=== PATIENT | female | born 1945 | race Caucasian/White ===

== ENCOUNTER 2021-02-05 07:50 | Outpatient (CLI) | payer MEDICARE, SELFPAY ==
[2021-02-05] VITALS (7 sets, daily range): BP systolic 122–128; BP diastolic 72–84; PULSE 74–79; RESP 18–20; TEMP 36.9–37; O2SAT 95–96
== END 2021-02-05 10:00 | disposition home or self-care (01) ==
LOC: INF 07:56
PROVIDERS: PCP Family Medicine; Visit Provider Family Medicine
DX: U07.1 COVID-19 (principal); Z23 Encounter for immunization
CPT/HCPCS: 96365

== ENCOUNTER → 2021-02-21 13:36 | Outpatient (CLI) | payer MEDICARE, SELFPAY | PROVIDERS: Visit Provider Nurse Practitioner | DX: Z20.822 Contact with and (suspected) exposure to COVID-19 (principal) | CPT/HCPCS: C9803; U0003; U0005 ==

== ENCOUNTER 2023-02-18 09:50 | Emergency (ER) | payer MEDICARE, SELFPAY ==
[2023-02-18 10:15] VITALS: BP 130/71; PULSE 78; RESP 18; TEMP 36.9; O2SAT 96
--- NOTE | 2023-02-18 10:23 | EXP.UTC ---
Discharge Plan Disposition Patient Disposition: Home, Self-Care Condition: Good Prescriptions Prescriptions: New azithromycin [Zithromax] 250 mg tablet 250 mg PO UD DOSE PK Qty: 6 0RF Rx Instructions: Take two (2) tablets today, then one (1) tablet days #2 thru #5 benzonatate [benzonatate] 100 mg capsule 100 mg PO TIDP PRN (Reason: Cough) Qty: 30 0RF guaifenesin [Mucinex] 600 mg tablet extended release 12hr 600 - 1,200 mg PO BIDP PRN (Reason: Congestion) Qty: 30 0RF methylprednisolone 4 mg Tablets,Dose Pack 4 mg PO DIRECTED 6 Days Qty: 21 0RF Rx Instructions: Take 1 pack as directed for 6 days No Action thyroid (pork) [[place] Thyroid] 30 mg tablet See Rx Instructions .ROUTE .COMPLEX Patient Comments: TAKE 2 TABLETS BY MOUTH ON SUNDAY, SUNDAY AND SUNDAY AND 1 TABLET ALL OTHER DAYS OF THE WEEK Rx Instructions: TAKE 2 TABLETS BY MOUTH ON SUNDAY, SUNDAY AND SUNDAY AND 1 TABLET ALL OTHER DAYS OF THE WEEK Referrals Follow up/Referrals: Clair Yoder [Primary Care Provider] - See instructions Activity Restrictions/Add. Instructions Additional Instructions/Restrictions: Drink plenty of fluids. Take tylenol or ibuprofen for pain or fever. Take the medications as directed. Follow up with your regular doctor. GO TO THE ER FOR ANY WORSENING SYMPTOMS Clinical Impressions Clinical Impression: Sinusitis, Bronchitis Instructions Patient Instructions: DI for Sinusitis Discharge ED Provider: Gregory Mondragon [facility] [place] General Stated complaint: cough chest congestion Time Seen by Provider: 02/18/23 10:23 History of Present Illness Provider Complaint: She states that for the past 4 days she has had sinus congestion and a cough. She denies any fever/chills/body aches. Related Data Home Medications Medication Instructions Recorded Confirmed thyroid (pork) 30 mg tablet See Rx Instructions .Route .COMPLEX 02/18/23 02/18/23 ([place] Thyroid) Previous Rx's Medication Instructions Recorded azithromycin 250 mg tablet 250 mg PO UD DOSE PK #6 tabs 02/18/23 (Zithromax) benzonatate 100 mg capsule 100 mg PO TIDP PRN Cough #30 caps 02/18/23 guaifenesin 600 mg tablet, 600 - 1,200 mg PO BIDP PRN 02/18/23 extended release 12 hr (Mucinex) Congestion #30 tabs methylprednisolone 4 mg tablets in 4 mg PO DIRECTED 6 days #21 tabs 02/18/23 a dose pack Allergies Allergy/AdvReac Type Severity Reaction Status Date / Time No Known Allergies Allergy Verified 02/18/23 10:25 [facility] Disclaimer: The information contained in this section may have been updated after the patient was seen, as this information can be updated by other users. 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 (Updated 02/18/23 @ 10:32 by Gregory Mondragon APRN) Thyroid disease Social History Smoking Status: Never smoker alcohol intake: never current occupational status: employed Travel in the last 8 weeks: None ROS Obtained: Yes All systems reviewed & no additional complaints except as documented Constitutional Constitutional: Reports poor appetite Eyes Eyes: Reports system reviewed and no additional complaints, except as documented ENT Ears, Nose, Mouth, and Throat: Reports as per HPI Cardiovascular Cardiovascular: Reports system reviewed and no additional complaints, except as documented and Denies chest pain Respiratory Respiratory: Denies shortness of breath, Reports chest congestion, Reports cough, Denies stridor and Denies wheezing Gastrointestinal Gastrointestingal: Reports system reviewed and no additional complaints, except as documented; Denies abdominal pain, diarrhea or vomiting Musculoskeletal Musculoskeletal: Reports system reviewed and no additional complaints, except as documented and Denies arthralgias Integumentary/Breasts Skin/Breast: Reports system reviewed and no additional complaints, except as documented and Denies rash Neurologic Neurologic: Denies paresthesias Allergic/Immunologic Allergic/Immunologic: Denies wheezing Physical Exam General General appearance: alert and in no apparent distress Eye Eye exam: Present normal appearance, PERRL and EOMI ENT ENT exam: Present mucous membranes moist and normal external ear exam Expanded ENT Exam External ear exam: Present normal external inspection TM/Canal exam: Bilateral TM: erythema and bulging Nose exam: Absent sinus tenderness Nasal speculum exam: Bilateral: normal Mouth exam: Present normal external inspection; Absent drooling Teeth exam: Present normal inspection Throat exam: Present tonsillar erythema and tonsillomegaly Neck Neck exam: Present normal inspection, full ROM and trachea midline; Absent tenderness, lymphadenopathy or thyromegaly Chest Chest inspection: Present normal inspection and symmetric chest wall rise; Absent tenderness or rash Respiratory Respiratory exam: Present normal lung sounds bilaterally; Absent respiratory distress, wheezes, stridor or accessory muscle use Cardiovascular Cardiovascular exam: Present regular rate, normal rhythm and normal heart sounds Abdominal Exam Abdominal exam: Present soft; Absent distention, tenderness, guarding, rebound or rigidity Extremities Exam Extremities exam: Present normal inspection, full ROM and normal capillary refill; Absent tenderness or calf tenderness Back Exam Back exam: Present normal inspection and full ROM; Absent tenderness Neurological Exam Neurological exam: Present alert and oriented X3 Psychiatric Psychiatric exam: Present normal affect and normal mood Skin Skin exam: Present warm, dry, intact and normal color Lymphatic Lymphatic Findings: no adenopathy Medical Decision Making Medical Records Medical records reviewed: No I reviewed the patient's medical records. Jaime Inquiry Pt receiving controlled substance: No
[2023-02-18 10:46] VITALS: BP 130/71; PULSE 78; RESP 18; TEMP 36.9; O2SAT 96
== END 2023-02-18 10:46 | disposition home or self-care (01) ==
PROVIDERS: Emergency Provider Nurse Practitioner Family; PCP Family Medicine
DX: J20.9 Acute bronchitis, unspecified (principal); J01.90 Acute sinusitis, unspecified; R05.9 Cough, unspecified; R09.89 Other specified symptoms and signs involving the circulatory and respiratory systems; R09.81 Nasal congestion
CPT/HCPCS: 99204; 99212; G0463

== ENCOUNTER 2023-10-06 10:57 | Emergency (ER) | payer MEDICARE, SELFPAY ==
[2023-10-06 11:35] VITALS: BP 124/61; PULSE 58; RESP 18; TEMP 36.6; O2SAT 98; BMI 23.0
--- NOTE | 2023-10-06 11:44 | XR_ITS ---
PROCEDURE INFORMATION: Exam: XR Right Foot Exam date and time: 10/06/2023 12:02 PM Age: 77 years old Clinical indication: Pain; Foot; Right; Additional info: Pain and swelling TECHNIQUE: Imaging protocol: Radiologic exam of the right foot. Views: 3 or more views. COMPARISON: No relevant prior studies available. FINDINGS: Bones/joints: Fracture at the lateral base proximal phalanx 1st digit, age uncertain. Articular extension evident. No dislocation. Soft tissues: Normal. IMPRESSION: Fracture at the lateral base proximal phalanx 1st digit, age uncertain. Recommend correlation with patient pain.
--- NOTE | 2023-10-06 11:44 | XR_ITS ---
PROCEDURE INFORMATION: Exam: XR Right Ankle Exam date and time: 10/06/2023 12:04 PM Age: 77 years old Clinical indication: Pain; Ankle; Right; Additional info: Pain and swelling TECHNIQUE: Imaging protocol: Radiologic exam of the right ankle. Views: 3 or more views. COMPARISON: CR XR FOOT RT MIN 3V 10/06/2023 12:02 PM FINDINGS: Bones/joints: No acute fracture or dislocation. Soft tissues: Lateral soft tissue swelling. IMPRESSION: Lateral soft tissue swelling.
--- NOTE | 2023-10-06 11:47 | ED_ITS ---
Discharge Plan Disposition Patient Disposition: Home, Self-Care Condition: Good Prescriptions Prescriptions: New prednisone 20 mg tablet 20 mg PO BID Qty: 10 0RF No Action thyroid (pork) [[place] Thyroid] 30 mg tablet See Rx Instructions .ROUTE .COMPLEX Patient Comments: TAKE 2 TABLETS BY MOUTH ON SUNDAY, SUNDAY AND SUNDAY AND 1 TABLET ALL OTHER DAYS OF THE WEEK Rx Instructions: TAKE 2 TABLETS BY MOUTH ON SUNDAY, SUNDAY AND SUNDAY AND 1 TABLET ALL OTHER DAYS OF THE WEEK Referrals Follow up/Referrals: Clair Yoder [Primary Care Provider] - See instructions Activity Restrictions/Add. Instructions Additional Instructions/Restrictions: Weight bearing as tolerated rest Ice with cold pack for 20 minutes remove may repeat for comfort every hour Elevate with foot above your heart as much as possible to help reduce swelling and therefore pain Ibuprofen every 6 hours as needed for pain or inflammation. If needs something more you can take Tylenol every 4 hours as needed as long as her primary care has told he was okayed for you to take both. If improving any do not need to follow-up you can bring begin exercising 2-3 weeks after injury. Follow-up immediately if new or worsening symptoms or no noticeable improvement over the next 3-5 days. call ortho if no improvement Clinical Impressions Clinical Impression: Acute foot pain Instructions Patient Instructions: DI for Metatarsalgia Print Language Print Language: Malawian Discharge ED Provider: Kesha ([facility])Yesi [facility] [place] H[place] General Stated complaint: right foot pain Mode of Arrival: Ambulatory Source of Information: Patient Limitations: No Limitations Time Seen by Provider: 10/06/23 11:47 Description of Symptoms (Recalled from Triage Doc. by RN): PATIENT C/O SWELLING AND PAIN TO RIGHT FOOT AND ANKLE X 2 DAYS, NO KNOWN INJURY HEENT Symptoms (Recalled from RN notes): No Resp Symptoms (Recalled from RN notes): No Skin Symptoms (Recalled from RN notes): No MS Symptoms (Recalled from RN notes): Yes Functional Status (Recalled from RN notes): WNL History of Present Illness Provider Complaint: 77 yr old female presents for c/o right foot pain x 2 days no injury Related Data Home Medications ?Medication ?Instructions ?Recorded ?Confirmed thyroid (pork) 30 mg tablet See Rx Instructions .Route .COMPLEX 02/18/23 10/06/23 ([place] Thyroid) Previous Rx's ?Medication ?Instructions ?Recorded prednisone 20 mg tablet 20 mg PO BID #10 tabs 10/06/23 Allergies Allergy/AdvReac Type Severity Reaction Status Date / Time No Known Allergies Allergy Verified 02/18/23 10:25 Worker's Comp Is this a Worker's Comp case?: No PFSH [facility] Disclaimer: The information contained in this section may have been updated after the patient was seen, as this information can be updated by other users. 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: Never smoker alcohol intake: never current occupational status: employed Travel in the last 8 weeks: None ROS Obtained: Yes All systems reviewed & no additional complaints except as documented Constitutional Constitutional: Reports system reviewed and no additional complaints, except as documented Eyes Eyes: Reports system reviewed and no additional complaints, except as documented ENT Ears, Nose, Mouth, and Throat: Reports system reviewed and no additional complaints, except as documented Cardiovascular Cardiovascular: Reports system reviewed and no additional complaints, except as documented Respiratory Respiratory: Reports system reviewed and no additional complaints, except as documented Musculoskeletal Musculoskeletal: Reports system reviewed and no additional complaints, except as documented, Reports as per HPI, Reports arthralgias, Reports limited range of motion and Reports other Integumentary/Breasts Skin/Breast: Reports system reviewed and no additional complaints, except as documented Neurologic Neurologic: Reports system reviewed and no additional complaints, except as documented Endocrine Endocrine: Reports system reviewed and no additional complaints, except as documented Hematologic/Lymphatic Henatologic/Lymphatic: Reports system reviewed and no additional complaints, except as documented Allergic/Immunologic Allergic/Immunologic: Reports system reviewed and no additional complaints, except as documented Physical Exam General General appearance: alert and in no apparent distress Eye Eye exam: Present normal appearance and PERRL ENT ENT exam: Present normal exam Respiratory Respiratory exam: Present normal lung sounds bilaterally Cardiovascular Cardiovascular exam: Present regular rate and normal rhythm Expanded Lower Extremity Exam Right: Top foot image: 2 1. [employer] Neurological Exam Neurological exam: Present alert and oriented X3 Skin Skin exam: Present warm and intact Lymphatic Lymphatic Findings: no adenopathy Medical Decision Making Medical Records Medical records reviewed: Yes I reviewed the patient's medical records. Jaime Inquiry Pt receiving controlled substance: No Jaime was queried for this patient: No Vital Signs: 10/06/23 11:35 Temperature 97.9 F Temperature Source Oral Pulse Rate [Right Brachial] 58 L Respiratory Rate 18 Blood Pressure [Right Arm] 124/61 Blood Pressure Mean [Right Arm] 82 Blood Pressure Source [Right Arm] Automatic Cuff Blood Pressure Position [Right Arm] Sitting 02 Sat by Pulse Oximetry 98 Oxygen Delivery Method Room Air Orders (Tests/Meds): ORDERS Category Date Time Status Ankle XR -Right minimum 3 Views [XR ankle RT min 3V] Exams 10/06/23 11:44 Ordered Stat XR foot RT min 3V Stat Exams 10/06/23 11:44 Ordered Radiology Data #1: Image(s): Foot/Toes Image Reviewed: Yes I reviewed the patient's radiology image Preliminary Findings: Normal/NAD
[2023-10-06 13:02] VITALS: BP 124/61; PULSE 58; RESP 18; TEMP 36.6; O2SAT 98
== END 2023-10-06 13:06 | disposition home or self-care (01) ==
PROVIDERS: Emergency Provider Nurse Practitioner Family; PCP Family Medicine
DX: M79.671 Pain in right foot (principal)
CPT/HCPCS: 73610; 73630; 99212; 99214; G0463

== ENCOUNTER 2024-10-10 09:59 | Outpatient (CLI) | payer MEDICARE, SELFPAY ==
--- OUTSIDE RECORDS SUMMARY | 2024-05-24 17:30 | XMS_ITS ---
Author Organization [facility] Address [address] [facility] [address] [facility] [address] [place] [address] Care Team Providers Care Cmv Driver Name Role Phone Darrin Soto Primary Care Provider Darrin Soto Unavailable Unavailable Migration, Provider Unavailable [facility] Encounter Medications Medication SIG (Take, Route, Fr equency, Duration) Notes Start Date End Date Status [place] Thyroid 30 MG 1 tab(s) orally 1 t ab on odd days and 2 tabs on even days Act meng Ciclopirox 0.77 % 1 doug applied topica lly 2 times a day; Duration: 30 days 03/17/2024 Active Encounters Encounter Location Date Provider Diagnosis [facility] [address] [facility] [address] [place] [id number] 05/24/2024 Provider Migration Onychomycosis B35.1 Assessments Encounter Date Diagnosis (ICD Code) Assessment Notes Treatment Notes Treatment Clinical Notes Section Notes 05/24/2024 Onychomycosis (ICD-10 - B35.1) Plan Of Treatment Medication Medication Name Sig Start Date Stop Date Notes Ciclopirox 0.77 % 1 doug applied topica lly 2 times a day; Duration: 30 days 03/17/2024 Progress Notes * Maude HEOB:1945 ([age] yo F)Acc No.[id number]:05/24/2024 Patient: Patricia Liz CONN Provider: Graciela hernández Migration :1945 A ge:78 Y S ex:Female Date:05/24/2024 Address:[address] [place] [address] [address] [facility] [id number] Pcp:Darrin Soto Subjective: * Chief Complaints: * 1 . [facility] To [facility] Conversion Encounter. * 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: * Medications: T aking [place] Thyroid 30 MG Tablet 1 tab(s) orally 1 tab on odd days and 2 tabs on even days Objective: * Vitals: Assessment: * Assessment: 1. O nychomycosis - B35.1 Plan: * Treatment: * * Electronic signature of Prov aliza Migration on 10/10/2024 at 10:02 AM EDT Sign off status: Pending * Provider: Graciela hernández Migration Date: 0 05/24/2024 Generated for Zunilda riddle/Deana/Ivainaitting on: 0 10/10/2024 10:02 AM EDT
--- OUTSIDE RECORDS SUMMARY | 2024-10-06 07:15 | XMS_ITS ---
Author Organization [facility] Address [address] [place] [address] Care Team Providers Care Document Imaging Manager Name Role Phone Darrin Soto Primary Care Provider Darrin Soto Unavailable Unavailable Allergies No Known Allergies Results Component Value Reference Range Notes THYROID PANEL WITH TSH (7444 ) Reviewed date:10/09/2024 10:47:30 AM Interpretation: Performing Lab:[facility] [id number]em[address]FastDue, [id number] Andrea Tucker Notes/Report: NON-FASTING; NON-FASTING; NON-FASTING FASTING:YES FASTING: YES T3 UPTAKE 24 22-35 % T4 (THYROXINE), TOTAL 6.0 5.1-11.9 mcg/dL FREE T4 INDEX (T7) 1.4 1.4-3.8 TSH 2.16 0.40-4.50 mIU/L LIPID PANEL, STANDARD (7600) Reviewed date:10/09/2024 10:47:46 AM Interpretation: Performing Lab:[facility] [id number] [address], [id number] nAdrea Tucker Notes/Report: NON-FASTING; NON-FASTING; NON-FASTING FASTING:YES FASTING: YES CHOLESTEROL, TOTAL 215 <200 mg/dL HDL CHOLESTEROL 42 > OR = 50 mg/dL TRIGLYCERIDES 211 <150 mg/dL If a non-fasting specimen was collected, consider repeat triglyceride testing on a fasting specimen if clinically indicated. Ramin et al. J. of Clin. Lipidol. 2015;9:129-169. LDL-CHOLESTEROL 138 Reference range: <100 Desirable range <100 mg/dL for primary prevention; <70 mg/dL for patients with CHD or diabetic patients with > or = 2 CHD risk factors. LDL-C is now calculated using the Vitaly calculation, which is a validated novel method providing better accuracy than the Friedewald equation in the estimation of LDL-C. Tulio SS et al. RADHA. 2013;310(19): 2001-0560 (http://education.[employer] [place]/faq/KJA799) CHOL/HDLC RATIO 5.1 <5.0 (calc) NON HDL CHOLESTEROL 173 <130 mg/dL (calc) For patients with diabetes plus 1 major ASCVD risk factor, treating to a non-HDL-C goal of <100 mg/dL (LDL-C of <70 mg/dL) is considered a therapeutic option. COMPREHENSIVE METABOLIC PANE Everette (44966) Reviewed date:10/09/2024 02:23:19 PM Interpretation: Performing Lab:[facility], [facility] [id number] [facility] Garsia, Jordan [id number] Andrea Tucker Notes/Report: NON-FASTING; NON-FASTING; NON-FASTING FASTING:YES FASTING: YES GLUCOSE 76 65-99 mg/dL Fasting reference interval UREA NITROGEN (BUN) 12 7-25 mg/dL CREATININE 0.81 0.60-1.00 mg/dL EGFR 75 > OR = 60 mL/min/1.73m2 BUN/CREATININE RATIO SEE NOTE: 6-22 (calc) Not Reported: BUN and Creatinine are within reference range. SODIUM 140 135-146 mmol/L POTASSIUM 3.9 3.5-5.3 mmol/L CHLORIDE 106 98-110 mmol/L CARBON DIOXIDE 27 20-32 mmol/L CALCIUM 9.3 8.6-10.4 mg/dL PROTEIN, TOTAL 6.6 6.1-8.1 g/dL ALBUMIN 4.2 3.6-5.1 g/dL GLOBULIN 2.4 1.9-3.7 g/dL (calc) ALBUMIN/GLOBULIN RATIO 1.8 1.0-2.5 (calc) BILIRUBIN, TOTAL 0.4 0.2-1.2 mg/dL ALKALINE PHOSPHATASE 75 37-153 U/L AST 19 10-35 U/L ALT 16 6-29 U/L REASON FOR VISIT Cholesterol follow up Medications Medication SIG (Take, Route, Fr equency, Duration) Notes Start Date End Date Status [place] Thyroid 30 MG 1 tab(s) orally 1 t ab on odd days and 2 tabs on even days Act meng Social History Tobacco Use: Social History Observation Description Date Details (start date - stop date) Never Smoker NA - NA Tobacco Control (Standard) Question Answer Notes Tobacco use: Nonsmoker Problems Problem Type SNOMED Code ICD Code Onset Dates Problem Status W/U Status Risk Notes Problem 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 Problem Restless legs (19053363) Restless leg (G25.81) Active confirmed Problem Gastroesophageal reflux disease (454132224) GERD without esophagitis (K21.9) Active confirmed Vital Signs Temperature 97.9 degrees Fahrenheit 10/07/19 25 Heart Rate 76 /min 10/06/2024 Blood pressure systolic 120 mm Hg 10/07/19 25 Blood pressure diastolic 74 mm Hg 025 Height 65.5 in 10/06/2024 Weight 138 lbs 10/06/2024 BMI 22.61 kg/m2 10/06/2024 Encounters Encounter Location Date Provider Diagnosis [facility] [address] [place] [address] 10/06/2024 Darrin Guerlinelisa Acquired hypothyroid ism E03.9 ; Mixed hyperlipidemia E78.2 ; Idiopathic neuropathy G60.9 ; Restless leg G25.81 ; GERD without esophagitis K21.9 ; Spider veins I78.1 ; Onychomycosis B35.1 and Dizziness R42 Assessments Encounter Date Diagnosis (ICD Code) Assessment Notes Treatment Notes Treatment Clinical Notes Section Notes 10/06/2024 Acquired hypothyroidism (ICD-10 - E03.9) maintaining current regimen of armour thyroid 30 mg thyroid panel labs drawn today. I will personally review labs 10/06/2024 Mixed hyperlipidemia (ICD-10 - E78.2) LDL labs were adequate on last lab draw, triglycerides elevated at last draw pt finished taking red yeast rice extract about 3 wks ago lipid panel drawn today i will review personally 10/06/2024 Idiopathic neuropathy (ICD-10 - G60.9) labs drawn today, i will personally review 10/06/2024 Restless leg (ICD-10 - G25.81) labs drawn today, i will personally review 10/06/2024 GERD without esophagitis (ICD-10 - K21.9) pt to continue taking OTC omeprazole and switch to sleeping on her left side for optimal digestion 10/06/2024 Spider veins (ICD-10 - I78.1) no need for treatment, mostly cosmetic concern recommend asa 81mg daily 10/06/2024 Onychomycosis (ICD-10 - B35.1) pt using otc ciclopirox nail lacquer and nail drill continue current regimine discussed using topical lacquer for up to a year for resolution of nail fungus 10/06/2024 Dizziness (ICD-10 - R42) I will refer pt for carotid doppler US Plan Of Treatment Treatment Notes Assessment Notes Acquired hypothyroidism maintaining current regimen of armour thyroid 30 mg thyroid panel labs drawn today. I will personally review labs Mixed hyperlipidemia LDL labs were adequate on last lab draw, triglycerides elevated at last draw pt finished taking red yeast rice extract about 3 wks ago lipid panel drawn today i will review personally Idiopathic neuropathy labs drawn today, i will personally review Restless leg labs drawn today, i will personally review GERD without esophagitis pt to continue taking OTC omeprazole and switch to sleeping on her left side for optimal digestion Spider veins no need for treatment, mostly cosmetic concern recommend asa 81mg daily Onychomycosis pt using otc ciclopirox nail lacquer and nail drill continue current regimine discussed using topical lacquer for up to a year for resolution of nail fungus Dizziness I will refer pt for carotid doppler US Pending Test Test Name Order Date MAGNESIUM (622) 10/06/2024 HEMOGLOBIN A1c (496) 10/06/2024 VITAMIN B12/FOLATE, SERUM PANEL (7065) 0 10/06/2024 FERRITIN (457) 10/06/2024 VITAMIN D,25-OH,TOTAL,IA (10834) 025 CAROTID DUPLEX 10/06/2024 Next Appt Details Follow Up: prn, Reason: Progress Notes * Maude HEOB:1945 ([age] yo F)Acc No.[id number]:10/06/2024 Progress Notes Patient: Liz SILVA Provider: Patricia Soto MD :1945 A ge:78 Y S ex:Female Date:10/06/2024 Address:[address] [place] [address] [place] [address] [id number] Subjective: * Chief Complaints: * 1 . Cholesterol follow up. * HPI: g en: Mrs. He presents today for a follow up. She is here for lipid labs. She is fasting. She finished taking red yeast rice extract a bout a month ago. She would like to discuss her liver with a previous diagnosis of fatty liver disease. would like to talk about her dizziness and check the blood flow to her head. Although she does not get dizzy anymore after taking B12 supplements. She saw a health informatics specialist in the past for toenail fungus who gave an otc paint on antifungal, She was using a drill file on her nails, but would like other options and recommendations. She has broken blood vessels and pain in her feet from lack of cushion. She experiences leg cramping at night mostly in the right leg which she takes magnesium citrate for relief. She has a slightly itchy rash and visible veins on her legs which concerns her for blood flow problems. She has been experiencing tinnitis for some time now without hearing loss or pain. She has been experiencing heart burn which is relieved by omeprazole. * 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: H yperthyroidism, Sojen disease. * Surgical History: t umor removal , colonoscopy 2020. * Hospitalization/Major Diagno stic Procedure: R ectal bleeding 2014. * Family History: F ather: , Alzheimer's dementia. M other: , diagnosed with Heart Disease.?Paternal Grand Father: . P aternal Grand Mother: . M aternal Grand Father: . M aternal Grand Mother: . P aternal uncle: . P aternal aunt: . M aternal uncle: . M aternal aunt: . S iblings: .?Children: alive. 1 brother(s) , 1 sister(s) . 2 daughter(s) - healthy. . * Social History: R ecreational drug use: no. Exercise: yes. Home smoke detector use: yes. Caffeine: yes, frequency: coffee, tea. Living Will: Yes. Alcohol: no. Sexually active: no. Travel outside [place]: no. Occupation: Retired. Tobacco Control (Standard) T obacco use: N onsmoker. * Medications: T paulino [place] Thyroid 30 MG Tablet 1 tab(s) orally 1 tab on odd days and 2 tabs on even days , Discontinued Meclizine HCl 25 MG Tablet 1 tab(s) orally 3 times a day prn vertigo , Discontinued Ondansetron 4 MG Tablet Disintegrating 1 tab(s) orally 3 times a day , Discontinued Ciclopirox 0.77 % Gel APPLY TOPICALLY TO AFFECTED AREA TWICE DAILY , Medication List reviewed and reconciled with the patient * Allergies: N .K.D.A. Objective: * Vitals: N urse: be, Pain: 0, Temp: 97.9, RR: 16, HR: 76, BP: 120/74, Ht: 65.5, Wt: 138, BMI:22.61. * Examination: G eneral Examination: General P leasant and Cooperative, NAD on RA,. Heart: R egular Rate and Rhythm, no murmur, rubs or gallops. Lungs: L CTAB, No wheezes, crackles or rhonchi, Good air movement,. Skin: m ildly erythematous rash on left pretibial region.? Assessment: * Assessment: 1. A cquired hypothyroidism - E03.9 (Primary) 2 . M ixed hyperlipidemia - E78.2 3 . I diopathic neuropathy - G60.9 4 . R estless leg - G25.81 5 . G ERD without esophagitis - K21.9 6 . S pider veins - I78.1 7 . O nychomycosis - B35.1 8 . D izziness - R42? Plan: * Treatment: Value Reference Range T 3 UPTAKE 24 22-35 - % * T 4 (THYROXINE), TOTAL 6.0 5.1-11.9 - mcg/dL * F REE T4 INDEX (T7) 1.4 1.4-3.8 - * T SH 2.16 0.40-4.50 - mIU/L * Anahy Shannon 10/08/2024 10:07:41 AM EDT > Left patient VM to call [facility] lab was reviewed by Mirta Rodriguez on 10/09/2024 at 10:47 AM EDT ?LAB: LIPID PANEL, STANDARD (7600)* Value Reference Range T RIGLYCERIDES 211 H <150 - mg/dL * C HOLESTEROL, TOTAL 215 H <200 - mg/dL * H DL CHOLESTEROL 42 L > OR = 50 - mg/dL * L DL-CHOLESTEROL 138 H - mg/dL (calc) * C HOL/HDLC RATIO 5.1 H <5.0 - (calc) * N ON HDL CHOLESTEROL 173 H <130 - mg/dL (calc) * Anahy Shannon 10/08/2024 10:07:41 AM EDT > Left patient VM to call [facility] lab was reviewed by Mirta Rodriguez on 10/09/2024 at 10:47 AM EDT ?LAB: COMPREHENSIVE METABOLIC PANEL (32364)* Value Reference Range G LUCOSE 76 65-99 - mg/dL * U BETINA NITROGEN (BUN) 12 7-25 - mg/dL * C REATININE 0.81 0.60-1.00 - mg/dL * B UN/CREATININE RATIO SEE NOTE: 6-22 - (calc) * S ODIUM 140 135-146 - mmol/L * P OTASSIUM 3.9 3.5-5.3 - mmol/L * C HLORIDE 106 98-110 - mmol/L * C ARBON DIOXIDE 27 20-32 - mmol/L * C ALCIUM 9.3 8.6-10.4 - mg/dL * P ROTEIN, TOTAL 6.6 6.1-8.1 - g/dL * A LBUMIN 4.2 3.6-5.1 - g/dL * G LOBULIN 2.4 1.9-3.7 - g/dL (calc ) * A LBUMIN/GLOBULIN RATIO 1.8 1.0-2.5 - (calc) * B ILIRUBIN, TOTAL 0.4 0.2-1.2 - mg/dL * A LKALINE PHOSPHATASE 75 37-153 - U/L * A ST 19 10-35 - U/L * A LT 16 6-29 - U/L * E GFR 75 > OR = 60 - mL/min/1 .73m2 * Anahy Shannon 10/08/2024 10:07:41 AM EDT > Left patient VM to call [facility] lab was reviewed by Anahy Shannon on 10/09/2024 at 14:23 PM EDT Notes: maintaining current regimen of armour thyroid 30 mg thyroid panel labs drawn today. I will personally review labs ??2.?Mixed hyperlipidemia?LAB: THYROID PANEL WITH TSH (7444)* Value Reference Range T 3 UPTAKE 24 22-35 - % * T 4 (THYROXINE), TOTAL 6.0 5.1-11.9 - mcg/dL * F REE T4 INDEX (T7) 1.4 1.4-3.8 - * T SH 2.16 0.40-4.50 - mIU/L * Anahy Shannon 10/08/2024 10:07:41 AM EDT > Left patient VM to call [facility] lab was reviewed by Mirta Rodriguez on 10/09/2024 at 10:47 AM EDT ?LAB: LIPID PANEL, STANDARD (7600)* Value Reference Range T RIGLYCERIDES 211 H <150 - mg/dL * C HOLESTEROL, TOTAL 215 H <200 - mg/dL * H DL CHOLESTEROL 42 L > OR = 50 - mg/dL * L DL-CHOLESTEROL 138 H - mg/dL (calc) * C HOL/HDLC RATIO 5.1 H <5.0 - (calc) * N ON HDL CHOLESTEROL 173 H <130 - mg/dL (calc) * Anahy Shannon 10/08/2024 10:07:41 AM EDT > Left patient VM to call [facility] lab was reviewed by Mirta Rodriguez on 10/09/2024 at 10:47 AM EDT ?LAB: COMPREHENSIVE METABOLIC PANEL (08620)* Value Reference Range G LUCOSE 76 65-99 - mg/dL * U BETINA NITROGEN (BUN) 12 7-25 - mg/dL * C REATININE 0.81 0.60-1.00 - mg/dL * B UN/CREATININE RATIO SEE NOTE: 6-22 - (calc) * S ODIUM 140 135-146 - mmol/L * P OTASSIUM 3.9 3.5-5.3 - mmol/L * C HLORIDE 106 98-110 - mmol/L * C ARBON DIOXIDE 27 20-32 - mmol/L * C ALCIUM 9.3 8.6-10.4 - mg/dL * P ROTEIN, TOTAL 6.6 6.1-8.1 - g/dL * A LBUMIN 4.2 3.6-5.1 - g/dL * G LOBULIN 2.4 1.9-3.7 - g/dL (calc ) * A LBUMIN/GLOBULIN RATIO 1.8 1.0-2.5 - (calc) * B ILIRUBIN, TOTAL 0.4 0.2-1.2 - mg/dL * A LKALINE PHOSPHATASE 75 37-153 - U/L * A ST 19 10-35 - U/L * A LT 16 6-29 - U/L * E GFR 75 > OR = 60 - mL/min/1 .73m2 * Anahy Shannon 10/08/2024 10:07:41 AM EDT > Left patient VM to call [facility] lab was reviewed by Anahy Shannon on 10/09/2024 at 14:23 PM EDT Notes: LDL labs were adequate on last lab draw, triglycerides elevated at last draw pt finished taking red yeast rice extract about 3 wks ago lipid panel drawn today i will review personally ??3.?Idiopathic neuropathy?LAB: MAGNESIUM (622) ?LAB: HEMOGLOBIN A1c (496) ?LAB: VITAMIN B12/FOLATE, SERUM PANEL (7065) ?LAB: FERRITIN (457) ?LAB: VITAMIN D,25-OH,TOTAL,IA (39494) Notes: labs drawn today, i will personally review??4.?Restless leg?LAB: MAGNESIUM (622) ?LAB: HEMOGLOBIN A1c (496) ?LAB: VITAMIN B12/FOLATE, SERUM PANEL (7065) ?LAB: FERRITIN (457) ?LAB: VITAMIN D,25-OH,TOTAL,IA (30389) Notes: labs drawn today, i will personally review??5.?GERD without esophagitis? Notes: pt to continue taking OTC omeprazole and switch to sleeping on her left side for optimal digestion??6.?Spider veins? Notes: no need for treatment, mostly cosmetic concern recommend asa 81mg daily??7.?Onychomycosis? Notes: pt using otc ciclopirox nail lacquer and nail drill continue current regimine discussed using topical lacquer for up to a year for resolution of nail fungus?? 8.?Dizziness?Imaging: CAROTID DUPLEX* Charisma Camacho 10/06 12:42:42 PM EDT > * Notes: I will refer pt for carotid doppler US?? * Procedure Codes: G 2211 Complex e/m visit add on * Follow Up: p rn * * Sign off status: Completed true * Provider: Patricia Soto MD Date: 10/06/2024 Generated for Zunilda riddle/Deana/Ivaniaitting on: 10/10/2024 10:01 AM EDT History and Physical Notes * HPI (History of Present Illness) Category Sub-Category Detail Notes Category Not es gen Mrs. He presents today for a follow up. She is here for lipid labs. She is fasting. She finished taking red yeast rice extract about a month ago. She would like to discuss her liver with a previous diagnosis of fatty liver disease. would like to talk about her dizziness and check the blood flow to her head. Although she does not get dizzy anymore after taking B12 supplements. She saw a health informatics specialist in the past for toenail fungus who gave an otc paint on antifungal, She was using a drill file on her nails, but would like other options and recommendations. She has broken blood vessels and pain in her feet from lack of cushion. She experiences leg cramping at night mostly in the right leg which she takes magnesium citrate for relief. She has a slightly itchy rash and visible veins on her legs which concerns her for blood flow problems. She has been experiencing tinnitis for some time now without hearing loss or pain. She has been experiencing heart burn which is relieved by omeprazole. Examination Category Sub-Category Detail Notes Category Not es General Examination Heart: Regular Rate and Rhythm, no murmur, rubs or gallops Lungs: LCTAB, No wheezes, c rackles or rhonchi, Good air movement, Skin: mildly erythematous rash on left pretibial region General Pleasant and Coopera tive, NAD on RA,
--- OUTSIDE RECORDS SUMMARY | 2024-10-10 10:02 | XMS_ITS | Patient Health Record ---
Author Organization [facility] Address [address] [place] [address] Care Team Providers Care Admitting Supervisor Name Role Phone Darrin Soto Primary Care Provider Darrin Soto Unavailable Unavailable Migration, Provider Unavailable Unavailable Allergies No Known Allergies Results Component Value Reference Range Notes THYROID PANEL WITH TSH (7444 ) Reviewed date:10/09/2024 10:47:30 AM Interpretation: Performing Lab:ROBYN Zondle-ubigrate [id number] [employer], Help [id number] Andrea Tucker Notes/Report: NON-FASTING; NON-FASTING; NON-FASTING FASTING:YES FASTING: YES T3 UPTAKE 24 22-35 % T4 (THYROXINE), TOTAL 6.0 5.1-11.9 mcg/dL FREE T4 INDEX (T7) 1.4 1.4-3.8 TSH 2.16 0.40-4.50 mIU/L LIPID PANEL, STANDARD (7600) Reviewed date:10/09/2024 10:47:46 AM Interpretation: Performing Lab:ROBYN Zondle-ubigrate [id number] [employer], Help [id number] Andrea Tucker Notes/Report: NON-FASTING; NON-FASTING; NON-FASTING FASTING:YES [...] of LDL-C. Tulio SS et al. RADHA. 2013;310(25): 7399-6315 (http://education.[employer] Education/faq/SGC586) CHOL/HDLC RATIO 5.1 <5.0 (calc) NON HDL CHOLESTEROL 173 <130 mg/dL (calc) For patients with diabetes plus 1 major ASCVD risk factor, treating to a non-HDL-C goal of <100 mg/dL (LDL-C of <70 mg/dL) is considered a therapeutic option. COMPREHENSIVE METABOLIC PANE Everette (20597) Reviewed date:10/09/2024 02:23:19 PM Interpretation: Performing Lab:ROBYN, Zondle-Jordan Garridoe1355 [facility] Garsia, Jordan ManzanoHandIU[address] Andrea Tucker Notes/Report: NON-FASTING; NON-FASTING; NON-FASTING FASTING:YES [...] 19 10-35 U/L ALT 16 6-29 U/L LIPID PANEL, STANDARD (7600) Reviewed date:03/18/2024 04:42:14 PM Interpretation: Performing Lab:ROBYN Zondle-ubigrate [id number] [facility], [facility] [id number] Andrea Tucker Notes/Report: NON-FASTING; NON-FASTING; NON-FASTING CHOLESTEROL, TOTAL 224 <200 mg/dL HDL CHOLESTEROL 42 > OR = 50 mg/dL TRIGLYCERIDES 298 <150 mg/dL If a non-fasting specimen was collected, consider repeat triglyceride testing on a fasting specimen if clinically indicated. Ramin et al. J. of Clin. Lipidol. 2015;9:129-169. LDL-CHOLESTEROL 139 Reference range: <100 Desirable range <100 mg/dL for primary prevention; <70 mg/dL for patients with CHD or diabetic patients with > or = 2 CHD risk factors. LDL-C is now calculated using the Tulio-Adilene calculation, which is a validated novel method providing better accuracy than the Friedewald equation in the estimation of LDL-C. Tulio SS et al. RADHA. 2013;310(19): 6784-6892 (http://education.[employer] Education/faq/MDX833) CHOL/HDLC RATIO 5.3 <5.0 (calc) NON HDL CHOLESTEROL 182 <130 mg/dL (calc) For patients with diabetes plus 1 major ASCVD risk factor, treating to a non-HDL-C goal of <100 mg/dL (LDL-C of <70 mg/dL) is considered a therapeutic option. THYROID PANEL WITH TSH (7444 ) Reviewed date:03/18/2024 04:42:14 PM Interpretation: Performing Lab:ROBYN Zondleubigrate [id number] [employer], [place] [id number] Andrea Tucker Notes/Report: NON-FASTING; NON-FASTING; NON-FASTING T3 UPTAKE 23 22-35 % T4 (THYROXINE), TOTAL 5.0 5.1-11.9 mcg/dL FREE T4 INDEX (T7) 1.2 1.4-3.8 TSH 2.71 0.40-4.50 mIU/L COMPREHENSIVE METABOLIC PANE L (13712) Reviewed date:03/18/2024 04:42:14 PM Interpretation: Performing Lab:ROBYN TrendingGamese1355 [facility] CenterJordanPgasOV[address] Andrea Hsu Garrett Notes/Report: NON-FASTING; NON-FASTING; NON-FASTING GLUCOSE 90 65-99 mg/dL Fasting reference interval UREA NITROGEN (BUN) 19 7-25 mg/dL CREATININE 0.99 0.60-1.00 mg/dL EGFR 59 > OR = 60 mL/min/1.73m2 BUN/CREATININE RATIO SEE NOTE: 6-22 (calc) Not Reported: BUN and Creatinine are within reference range. SODIUM 140 135-146 mmol/L POTASSIUM 4.1 3.5-5.3 mmol/L CHLORIDE 106 98-110 mmol/L CARBON DIOXIDE 28 20-32 mmol/L CALCIUM 9.6 8.6-10.4 mg/dL PROTEIN, TOTAL 6.4 6.1-8.1 g/dL ALBUMIN 4.1 3.6-5.1 g/dL GLOBULIN 2.3 1.9-3.7 g/dL (calc) ALBUMIN/GLOBULIN RATIO 1.8 1.0-2.5 (calc) BILIRUBIN, TOTAL 0.3 0.2-1.2 mg/dL ALKALINE PHOSPHATASE 75 37-153 U/L AST 19 10-35 U/L ALT 14 6-29 U/L Reason For Referral Reason B Carotid Doppler Diagnosis 1 Dizzy (R42) Referral Organization [facility] ANÍBAL PEREZ Referring Provider First Name Darrin Referring Provider Last Name Brittany Referring Provider Speciality Internal M edicine Referred Organization [facility] Referred Address [address] [place] [address], [place], [place],[address], Referred Provider Specialty Diagnostic R adiology General Notes Charisma Cervantes 2024 03:00:50 PM >[id number] Authorized, Approval Valid Through: 10/06/2024 - 01/03/2025 Referral Priority Routine Medications Medication SIG (Take, Route, Fr equency, Duration) Notes Start Date End Date Status [place] Thyroid 30 MG 1 tab(s) orally 1 [...] Problem Status W/U Status Risk Notes Problem Mixed hyperlipidemia (171781552) Mixed hyperlipidemia (E78.2) Active confirmed Problem Overactive bladder (942570633) Overactive bladder (N32.81) Active confirmed Problem Gastroesophageal reflux disease (921743704) GERD without esophagitis (K21.9) Active confirmed Problem Acquired hypothyroidism (263722683) Acquired hypothyroidism (E03.9) Active confirmed Problem Restless legs (45646733) Restless leg (G25.81) Active confirmed Problem 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 Vital Signs Heart Rate 76 /min 10/06/2024 Temperature 97.9 degrees Fahrenheit 10/06/2024 Blood pressure diastolic 74 mm Hg 10/06/2024 Height 65.5 in 10/06/2024 Blood pressure systolic 120 mm Hg 10/06/2024 Weight 138 lbs 10/06/2024 BMI 22.61 kg/m2 10/06/2024 Encounters Encounter Location Date Provider Diagnosis [facility] [address] [place] [address] 05/24/2024 Provider Migration Onychomycosis B35.1 [facility] [address] [place], [place] [address] 03/17/2024 Darrin Soto Mixed hyperlipidemia E78.2 ; Acquired hypothyroidism E03.9 ; Onychomycosis B35.1 ; Overactive bladder N32.81 and Routine medical exam Z00.00 [facility] [address] [place], [place] [address] 05/28/2024 Darrin Soto Recurrent vertigo R4 2 [facility] [address] [facility] [address] [place] [address] 10/06/2024 Darrin Besson Acquired hypothyroidism E03.9 ; Mixed hyperlipidemia E78.2 ; Idiopathic neuropathy G60.9 ; Restless leg G25.81 ; GERD without esophagitis K21.9 ; Spider veins I78.1 ; Onychomycosis B35.1 and Dizziness R42 [facility] [address] [facility] [address] [place], [place] [address] 11/21/2023 Darrin Soto Assessments Encounter Date Diagnosis (ICD Code) Assessment Notes Treatment Notes Treatment Clinical Notes Section Notes 03/17/2024 Mixed hyperlipidemia (ICD-10 - E78.2) Patient has a history of lipid problems. Will check this again today. Has never been on therapy. Low risk given her non-smoking status. I will review all labs personally 03/17/2024 Acquired hypothyroidism (ICD-10 - E03.9) On [place] Thyroid for many years. Levothyroxine and Synthroid gave her palpitations and stomach pain. She has been stable on this dose apparently for a while. 05/28/2024 Recurrent vertigo (ICD-10 - R42) Likely experiencing vertigo due to worsening of symptoms with movement, relief of symptoms with Kathe maneuver and lack of neurological deficits. Counseled on repeating Kathe maneuver every 3-4 hours, staying well hydrated and reducing salt intake. Will send in prescription for Meclizine to improve vertigo symptoms. Instructed to return in a week if no improvement in symptoms. 10/06/2024 Mixed hyperlipidemia (ICD-10 - E78.2) LDL labs were adequate on last lab draw, triglycerides elevated at last draw pt finished taking red yeast rice extract about 3 wks ago lipid panel drawn today i will review personally 10/06/2024 Acquired hypothyroidism (ICD-10 - E03.9) maintaining current regimen of armour thyroid 30 mg thyroid panel labs drawn today. I will personally review labs 10/06/2024 Idiopathic neuropathy (ICD-10 - G60.9) labs drawn today, i will personally review 03/17/2024 Onychomycosis (ICD-10 - B35.1) Has tried multiple OTC remedies. Will try brush on solution as noted 05/24/2024 Onychomycosis (ICD-10 - B35.1) 03/17/2024 Overactive bladder (ICD-10 - N32.81) On review of systems she has a lot of urinary frequency. Samples of Gemtesa, she will let me know how it goes 10/06/2024 Restless leg (ICD-10 - G25.81) labs drawn today, i will personally review 03/17/2024 Routine medical exam (ICD-10 - Z00.00) Aged out of cancer screening. Lifelong non-smoker. No falls, excellent functional status, /3 word recall. Depression screening negative. 10/06/2024 GERD without esophagitis (ICD-10 - K21.9) [...] for carotid doppler US Plan Of Treatment Pending Test Test Name Order Date MAGNESIUM (622) 10/06/2024 HEMOGLOBIN A1c (496) 10/06/2024 VITAMIN B12/FOLATE, SERUM PANEL (7065) 0 10/06/2024 FERRITIN (457) 10/06/2024 VITAMIN D,25-OH,TOTAL,IA (42652) 025 CAROTID DUPLEX 10/06/2024 Insurance Providers Payer Name Payer Address Payer Phone Subscriber Number Group Number Insured Name Patient Relationship to Insured Coverage Start Date Coverage End Date [employer] [address] [place] [address] [id number] Liz Talley Self - patient is the insured Medical (General) History 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 History ICD Code 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
--- NOTE | 2024-10-10 10:03 | CA_ITS ---
FINAL REPORT TECHNIQUE: Mayes scale, color and spectral doppler images of the bilateral carotid arteries were obtained. CLINICAL HISTORY: dizziness COMPARISON: None FINDINGS: Peak systolic velocity in the right internal carotid artery is 91 cm/sec. The internal carotid to common carotid artery ratio is 1.8. There is no significant carotid artery stenosis and mild to moderate plaque formation. The right vertebral artery is normal in direction. Peak systolic velocity in the left internal carotid artery is 96 cm/sec. The internal carotid to common carotid artery ratio is 1.8. There is no significant carotid artery stenosis and mild to moderate plaque formation. The left vertebral artery is normal in direction. IMPRESSION: No ultrasound evidence of hemodynamically significant carotid artery stenosis. Normal peak systolic velocities and normal internal to common carotid artery ratios bilaterally. Reviewed, Interpreted and Dictated by Vinod Winston MD Transcribed by Soraya Medina Authenticated and [facility]
== END 2024-10-10 23:59 | disposition home or self-care (01) ==
LOC: RT 10:00
PROVIDERS: PCP Internal Medicine Adolescent Medicine; Visit Provider Internal Medicine Adolescent Medicine
DX: R42 Dizziness and giddiness (principal)
CPT/HCPCS: 93880